=== PATIENT | female | born 1995 | race Caucasian/White ===

== ENCOUNTER 2016-11-15 05:15 | Inpatient (IN) | payer MEDICAID ==
[~2016-11-15] VITALS: Ht 172.7 cm; Wt 112.0 kg
[2016-11-18] MEDS ORDERED: IRON325 M1 PO (11:51)
[2016-11-18] MEDS ORDERED: PRENATAL VIT1 TAB PO (11:51)
[2016-11-18] MEDS ORDERED: MOTRIN-DPS800 MG PO (11:51)
[2016-11-18] MEDS ORDERED: PERCOCET 5 DPS1 TAB PO (11:51)
[2016-11-18] MEDS ORDERED: NIPPLECREAM TP (11:51)
--- NOTE | 2016-12-21 08:27 | HP ---
ADMIT: 11/15/2016 RM/LOC: 218 [facility] MR#: [id number] [address] [facility] [address] [place], [place] [address] TAMARA GONZALEZ [address] [place] [address] Pre-OP History and Physical SEX: F AGE: 21 : 1995 DATE OF SERVICE: PRINCIPAL DIAGNOSES: 1. Term intrauterine . 2. History of previous section. HISTORY OF PRESENT ILLNESS: The patient is a 21-year-old, white female, 2, para 1, who presents at 39 weeks' estimated gestational age for elective repeat low transverse section. Her had been complicated by history of methamphetamine and marijuana use. PAST MEDICAL HISTORY: She denies any significant previous medical history. SOCIAL HISTORY: As above noted methamphetamine and marijuana use. She is a smoker, states she was not smoking during the . Denies alcohol use. FAMILY HISTORY: Denies any significant family medical history. ALLERGIES: SHE IS ALLERGIC TO PENICILLIN PHYSICAL EXAMINATION: GENERAL: The patient is a well-developed, well- nourished, overweight white female. Alert and oriented, in no apparent distress with normal stream of thought and content of speech. HEART: Regular rate and rhythm without murmurs, rubs, or gallops. LUNGS: Clear to auscultation bilaterally. ABDOMEN: Soft with positive bowel sounds. Gravid. heart tones in the 130s with good variability of accelerations. ASSESSMENT: Term intrauterine with history of previous section x1. We discussed management options. The patient declines trial of labor after and desires a repeat section. We discussed risks involved with surgery including risks of infection, risk of bleeding with possible need for blood transfusion, and the attendant infectious risks of inherent blood transfusion. We also discussed risk of damage to other organs including, but not limited to, bowel, bladder, major blood vessels, and ureters with possible need for additional surgery and repair should such damage occur. The patient voiced understanding of the risks, benefits, and alternatives to the proposed procedure and desires to proceed with repeat low transverse section. Godwin Garay MD/ joon JOB #: [id number] CC: Godwin Garay MD, Attending Physician Godwin Garay MD, Family Physician
--- NOTE | 2016-12-21 08:27 | OR ---
ADMIT: 11/15/2016 RM/LOC: 218 [facility] MR#: [id number] LOCATED WITHIN [facility]#: [id number] [address] [address] MATT GONZALEZSTORMY Landis [address] [place] [address] Operative/Delivery Room Report SEX: F AGE: 21 : 1995 SURGERY DATE: 11/15/2016 SURGEON: Godwin Garay MD PRINCIPAL DIAGNOSES: 1. Term intrauterine . 2. History of previous section. POSTOPERATIVE DIAGNOSES: 1. Term intrauterine . 2. History of previous section. 3. History of drug use. INDICATION: The patient is a 21-year-old, white female, 2, para 1, who presented at 39 weeks' estimated gestational age for elective repeat low transverse section. ANESTHESIA: Spinal. ESTIMATED BLOOD LOSS: 750 mL. COMPLICATIONS: None. FINDINGS: Viable male , 7 pounds 11 ounces with sores of 8 at 1 and 9 at 5 minutes. ESTIMATED BLOOD LOSS: 750 mL. COMPLICATIONS: None. PERSONAL [employer] INSURANCE AGENT: Emily Cueva M.D. PROCEDURE: The patient was taken to the operating room, where she was prepped and draped in the usual fashion in dorsal supine position with a leftward tilt. A transverse skin incision was made with a scalpel and carried through sharply to the underlying layer of fascia. Fascia was then nicked in the midline. The fascial incision was extended laterally with Douglas scissors. The fascia was dissected off the underlying rectus muscles. The rectus muscles were in the midline. The parietal perineum was then entered bluntly with Carin clamps. This incision was then extended superiorly and inferiorly with good visualization of the bladder. Bladder blade was then inserted. Bladder flap was created with a combination of sharp and blunt dissection. The uterus was then nicked in the midline. The uterine incision was extended laterally with blunt digital dissection. 's head was then delivered atraumatically. The neck was examined for nuchal cord and none was noted. The remainder of the infant was then delivered. Cord was clamped x2, cut, and the infant was handed off to the waiting nursing staff. Placenta was then delivered intact with normal appearance. The uterus was exteriorized and cleared of all clots and debris. The endometrial cavity was then swept with a ADMIT: 11/15/2016 RM/LOC: 218 [facility] MR#: [id number] [address] [address] TAMARA GONZALEZ [address] [place] [address] Operative/Delivery Room Report SEX: F AGE: 21 : 1995 moist laparotomy sponge to remove any remaining products of conception. Uterine incision was then reapproximated with a running locked length of 0 Vicryl. Three [id number] stitches of 0 Vicryl were then used to obtain good hemostasis. The patient's abdomen was then suctioned. The uterus was returned to the patient abdomen. She was noted to have an approximately 1.5 cm paratubal cyst on the patient's right side, which was decompressed. The pericolic gutters were then cleared of all clots and debris. The uterine incision was again inspected and noted to be hemostatic. Subfascial compartments were then cleared of all clots and debris. Uterine incision was again inspected and good hemostasis was obtained with electrocautery. Subfascial compartments were then inspected and noted to be hemostatic. The fascia was reapproximated with a running length of 0 Vicryl. Subcutaneous tissue was then inspected and noted to be hemostatic, was reapproximated with several interrupted sutures of 3-0 plain gut, and the skin was then closed with Insorb subcuticular shannan. The patient tolerated the procedure well, was taken to the recovery room in stable condition. All sponge, instrument, and needle counts were correct. Godwin Garay MD/ joon JOB #: [id number] CC: Godwin Garay MD, Attending Physician Godwin Garay MD, Family Physician
--- NOTE | 2017-01-24 08:24 | DS ---
ADMIT: 11/15/2016 RM/LOC: 218 [facility] MR#: [id number] [facility]#: [id number] [address] [address] TAMARA GONZALEZ [address] [place] [address] General Discharge Summary SEX: F AGE: 21 : 1995 ADMISSION DATE: 11/15/2016 DISCHARGE DATE: 11/17/2016 PRINCIPAL DIAGNOSES: 1. Term intrauterine . 2. History of previous section. REASON FOR HOSPITALIZATION: The patient is a 21-year-old white female, 2, para 1, who presented at 39 weeks' estimated gestational age for elective repeat low transverse section. OPERATIVE PROCEDURES: The patient underwent a repeat low transverse section on 11/15/2016. HOSPITAL COURSE: The patient was admitted, underwent an uncomplicated repeat low transverse section. She did well through the initial operative day. By the morning of postoperative day #1, she was doing well, tolerating a regular diet, experiencing good pain control with oral pain medications, ambulating without difficulty, and using the bathroom without any problems. We continued to monitor her through the course of postoperative day #1. By the morning of postoperative day #2, she was doing well, tolerating a regular diet, experiencing good pain control with oral pain medications, ambulating without difficulty, and using the bathroom without any problems. Postoperative hemoglobin was 9.3, down from a preop of 11.0. By the morning of postoperative day #2, she was tolerating a regular diet, experiencing good pain control with oral pain medications, ambulating without difficulty, and using the bathroom without any problems. She was dismissed to home on postoperative day #2 on the following medications: 1. Motrin 800 mg one tab p.o. q.8 hours p.r.n. 2. Percocet 5 one to two tabs p.o. q.4 to 6 hours p.r.n. 3. Iron sulfate 325 mg one tab p.o. b.i.d. She was instructed to follow up in the clinic again in two weeks' time for an incision check and again in six weeks' time, sooner as needed for any problems. Godwin Garay MD/ joon JOB #: [id number] CC: Godwin Garay MD, Attending Physician Godwin Garay MD, Family Physician
== END 2016-11-17 16:30 | disposition home or self-care (01) | DRG 765 ==
LOC: BC 05:15 → 2LDRP 05:15 → BC 11-19 08:00
PROVIDERS: ADMIT Obstetrics & Gynecology
PROC: 10D00Z1 Extraction of Products of Conception, Low, Open Approach (ICD-10-PCS; principal; 2016-11-15)
DX: O34.211 Maternal care for low transverse scar from previous cesarean delivery (principal); D62 Acute posthemorrhagic anemia; O99.02 Anemia complicating childbirth; D64.9 Anemia, unspecified; Z37.0 Single live birth; Z3A.39 39 weeks gestation of pregnancy; Z88.0 Allergy status to penicillin